=== PATIENT | female | born 1970 | race Hispanic/Latino ===

== ENCOUNTER → 2019-01-16 | Outpatient (CLI) | payer BC | END | disposition home or self-care (01) | LOC: RAH 12:47 | PROVIDERS: ATTEND Family Medicine | DX: N60.01 Solitary cyst of right breast (principal) | CPT/HCPCS: 76641 ==

== ENCOUNTER → 2020-01-02 | Outpatient (CLI) | payer BC | END | disposition home or self-care (01) | LOC: RAH 15:01 | PROVIDERS: ATTEND Obstetrics & Gynecology | DX: Z12.31 Encounter for screening mammogram for malignant neoplasm of breast (principal); N60.19 Diffuse cystic mastopathy of unspecified breast | CPT/HCPCS: 77067 ==

== ENCOUNTER → 2020-08-21 | Outpatient (CLI) | payer OTHER | END | disposition home or self-care (01) | LOC: RAH 13:05 | PROVIDERS: ATTEND Obstetrics & Gynecology | DX: D25.9 Leiomyoma of uterus, unspecified (principal); N85.2 Hypertrophy of uterus; N93.9 Abnormal uterine and vaginal bleeding, unspecified | CPT/HCPCS: 76830 ==

== ENCOUNTER → 2021-01-12 | Outpatient (CLI) | payer OTHER | END | disposition home or self-care (01) | LOC: RAH 14:47 | PROVIDERS: ATTEND Obstetrics & Gynecology | DX: Z12.31 Encounter for screening mammogram for malignant neoplasm of breast (principal) | CPT/HCPCS: 77067 ==

== ENCOUNTER → 2021-01-20 | Outpatient (CLI) | payer OTHER | END | disposition home or self-care (01) | LOC: RAH 11:00 | PROVIDERS: ATTEND Obstetrics & Gynecology | DX: N60.01 Solitary cyst of right breast (principal); N60.02 Solitary cyst of left breast ==

== ENCOUNTER → 2023-01-18 | Outpatient (CLI) | payer OTHER | END | disposition home or self-care (01) | LOC: RAH 15:37 | PROVIDERS: ATTEND Obstetrics & Gynecology | DX: Z12.31 Encounter for screening mammogram for malignant neoplasm of breast (principal) | CPT/HCPCS: 77067 ==

== ENCOUNTER → 2023-02-15 | Outpatient (CLI) | payer OTHER, SELFPAY | END | disposition home or self-care (01) | LOC: RAH 14:08 | PROVIDERS: ATTEND Obstetrics & Gynecology | DX: N60.01 Solitary cyst of right breast (principal); R92.2 Inconclusive mammogram; N60.02 Solitary cyst of left breast ==

== ENCOUNTER → 2023-07-21 | Outpatient (CLI) | payer OTHER | END | disposition home or self-care (01) | LOC: RAH 08:08 | PROVIDERS: ATTEND Family Medicine | DX: Z13.6 Encounter for screening for cardiovascular disorders (principal) | CPT/HCPCS: 75571 ==

== ENCOUNTER → 2024-02-01 | Outpatient (CLI) | payer BC | END | disposition home or self-care (01) | LOC: RAH 13:17 | PROVIDERS: ATTEND Obstetrics & Gynecology | DX: Z12.31 Encounter for screening mammogram for malignant neoplasm of breast (principal); R92.30 Dense breasts, unspecified | CPT/HCPCS: 77067 ==

== ENCOUNTER → 2024-07-26 | Outpatient (CLI) | payer OTHER ==
--- NOTE | 2024-07-27 09:08 | HMCIMG ---
CT CORONARY CALCIFICATION SCORING: Anatomic images were reviewed. The calcium score is being generated and reported separately. This report is for the visualized anatomy only. Visualized portions of the lungs are clear. Hilar and mediastinal structures appear normal. Osseous structures are unremarkable. Impression: 1. Negative noncardiac anatomic findings. 2. The calcium score is 15.8 consistent with a mild degree of calcified plaque. This is 80th percentile however for a patient this age. CT was performed with one or more following dose reduction techniques: automated exposure control, adjustment of the mA and kv according to patient's size, or use of a iterative reconstruction technique.
== END | disposition home or self-care (01) ==
LOC: RAH 15:23
PROVIDERS: ATTEND Family Medicine
DX: Z13.6 Encounter for screening for cardiovascular disorders (principal)
CPT/HCPCS: 75571

== ENCOUNTER → 2025-02-22 | Outpatient (CLI) | payer BC ==
--- NOTE | 2025-02-22 16:06 | HMCIMG ---
BILATERAL BREAST ULTRASOUND: CLINICAL HISTORY: dense breast Prior breast sonogram from 02/15/2023 is available. Finding: Real-time examination of the both breasts heterogeneous homogeneous echotexture throughout both the breasts without evidence of focal solid masses. Both breasts have fibrocystic changes. The right breast at 12:00 there is a complex cyst within 0.8 x 0.7 x 0.8 cm. The right breast at 2:00 and cyst measuring 1.0 x 0.8 x 1.0 cm. The right breast at 4:00 there is a cyst within 0.6 x 0.5 x 0.9 cm. The right breast at 7:00 there is a small cyst within 0.8 x 0.4 x 0.9 cm. The right breast at 8:00 there is a 0.3 cm cyst. Right breast at 9:00 there is a cyst measuring 1.3 x 1.1 x 1.3 cm. Right breast at 10:00 there is a small cyst measuring 0.4 x 0.4 x 0.5 cm. Right axilla there is 3 small benign lymph nodes the largest measuring 0.8 cm. The left breast is a cyst at 11:30 measuring 1.4 x 0.9 x 0.7 cm. At 12:00 there is a small cyst measuring 0.5 x 0.7 x 0.57. At 1:00 there is a small cyst within 0.9 x 0.7 x 1.0 cm. At 2:00 there is a cyst measuring 1.1 x 1.0 x 1.0 cm. 2:00 there is a 0.7 cm cyst. At 4:00 and cyst measuring 10.1 x 0.9 x 1.1 cm. At 6:00 there are 2 small cyst measuring 0.6 x 0.5 cm and 0.3 cm. The the left breast at 7:00 there is a cyst measuring 0.9 x 0.8 x 0.8 cm at 8:00 there is a cyst measuring 0.5 x 0.6 cm and 9:00 there is a 0.4 cm cyst seen. IMPRESSION: Dense breasts with fibrocystic changes. There is no hypoechoic solid mass seen in either breast. I would recommend annual mammography with tomography with bilateral breast sonogram. FINAL ASSESSMENT: ACR: BI-RAD- 2. Benign: Also a negative assessment; finding(s) benign abnormalities. Management: Routine mammography screening. Likelihood of Cancer: Essentially 0% likelihood of malignancy.
== END | disposition home or self-care (01) ==
LOC: RAH 14:52
PROVIDERS: ATTEND Obstetrics & Gynecology
DX: N60.12 Diffuse cystic mastopathy of left breast (principal); N60.11 Diffuse cystic mastopathy of right breast; R92.333 Mammographic heterogeneous density, bilateral breasts